=== PATIENT | male | born 1985 | race Hispanic/Latino ===

== ENCOUNTER 2023-06-04 05:43 | Emergency (ER) | payer OTHER, SELFPAY ==
[2023-06-04] MEDS ORDERED: Acetaminophen 500 MG TAB ONE (06:48)
[2023-06-04 07:35] LABS: SARS-CoV-2 NAA Rapid Test Not Detected (NotDetected)
== END 2023-06-04 07:14 | disposition home or self-care (01) ==
LOC: ERS 05:43
DX: J11.1 Influenza due to unidentified influenza virus with other respiratory manifestations (principal); Z20.822 Contact with and (suspected) exposure to COVID-19
CPT/HCPCS: 99283